=== PATIENT | male | born 1960 | race Hispanic/Latino ===

== ENCOUNTER → 2017-10-15 | Outpatient (CLI) | payer OTHER ==
--- NOTE | 2017-10-15 12:14 | Diagnostic Imaging Report ---
PROCEDURE: Frontal and lateral views of the chest. COMPARISON: None. INDICATIONS: PLEURAL EFFUSION,M ATELACTASIS FINDINGS: Lines/tubes: None. Lungs and pleura: The lungs are well inflated. Mild central vascular congestion. Small right pleural effusion. No pneumothorax. Heart and mediastinum: The heart and the mediastinum are normal. Bones: No acute bony abnormality. IMPRESSION: Small loculated appearing right pleural effusion. Mild central vascular congestion. Dictated by: Brandon Maldonado M.D. on 10/15/2017 at 12:23 Electronically approved by: Brandon Maldonado M.D. on 10/15/2017 at 12:23
== END ==
LOC: RAD 11:41
PROVIDERS: ATTEND Family Medicine
DX: I50.9 Heart failure, unspecified (principal)
CPT/HCPCS: 71046

== ENCOUNTER → 2020-06-30 | Day surgery (SDC) | payer OTHER, MEDICARE ==
[2020-06-25 09:54] LABS: BASOPHILS # (AUTO) 0.1 (0.0-0.1); BASOPHILS % 0.8 % (0.0-1.0); EOSINOPHILS # (AUTO) 0.4 (0.0-0.4); EOSINOPHILS % 4.6 % (0.0-6.0); LYMPHOCYTES # (AUTO) 1.5 (1.0-3.2); LYMPHOCYTES % 18.7 % (18.0-39.1); MEAN CORPUSCULAR HEMOGLOBIN 29.9 pg (28-32); MEAN CORPUSCULAR HGB CONC 33.3 g/dL (31-35); MEAN CORPUSCULAR VOLUME 89.6 fL (81-99); MONOCYTES # (AUTO) 0.7 (0.2-0.8); MONOCYTES % 8.2 % (4.4-11.3); NEUTROPHILS # (AUTO) 5.3 (2.1-6.9); NEUTROPHILS % 67.3 % (38.7-80.0); PLATELET COUNT 134 x10e3/uL (140-360); RED BLOOD COUNT 3.35 x10e6/uL (4.3-5.7); RED CELL DISTRIBUTION WIDTH 14.4 % (11.7-14.4)
[2020-06-25 10:21] LABS: ALBUMIN 3.4 g/dL (3.5-5.0); ALBUMIN/GLOBULIN RATIO 1.1 (0.8-2.0); ANION GAP 12.4 mmol/L (8-16); CALCIUM 7.8 mg/dL (8.4-10.2); CREATININE, SERUM 6.88 mg/dL (0.72-1.25); POTASSIUM 4.4 mmol/L (3.5-5.1)
[2020-06-25 11:27] LABS: INR 1.09; PROTHROMBIN TIME 14.7 seconds (11.9-14.5)
[2020-06-25 11:28] LABS: PARTIAL THROMBOPLASTIN TIME 30.4 seconds (23.8-35.5)
[2020-06-30] VITALS (12 sets, daily range): BP systolic 141–180; BP diastolic 64–77
[~2020-06-30] VITALS: Ht 172.7 cm; Wt 97.5 kg
[~2020-06-30] MED LIST: ASPIRIN 325 MG TAB ONE; CARVEDILOL12.5 MG PO; CRESTOR10 MG PO; DIALYVITE 8000.8 M1 PO; ENTRESTO 49 MG1 EACH PO; FENTANYL CITRATE/PF 100MCG/2 ML INJ ONE; FERROUS SULFAT325 MG PO; GLIPIZIDE ER5 MG PO; HEPARIN SOD/SOD CHLORIDE 2,000 ML ONE; HYDRALAZINE HCL25 MG PO; IOPAMIDOL 300MG/ML 100 ML INFUS..BTL IV ONE; IOPAMIDOL 370 MG/ML 200 ML INFUS..BTL INJ ONE; JARDIANCE25 MG PO; LEVOTHYROXINE50 MCG PO; LIDOCAINE HCL 2% LOCAL 20 ML VIAL ONE; MIDAZOLAM HCL 2 MG/2 ML VIAL ONE; SODIUM CHLORIDE 0.9% 1000ML 1,000 ML ONE
--- NOTE | 2020-06-30 10:00 | NUR ---
1000 am RECEIVING NOTE ADMINISTRATION SPECIALIST RECOVERY DEPT............................................................... Bedside report received from LYRIC Morel. [id number]. Alert oriented and appropriate, PERRLA, respirations even and unlabored to room air. Pulses x4 extremities equal and strong. Pedal pulses PT/DP x4 and marked. Cap fill brisk < 3 sec. Rt groin Angiosel site No gross issues pain pallor pressure or dysrhythmia. May dc at 1pm. Skin warm and dry integrity appears D/I IV 20g to left hand at 50cchr presents healthy w/o s/s of infiltration or complaint. Abdomen soft and supple. pt offered toileting, denies need to urinate or defecate. No personal affects with patient. Family at bedside. Currently w/o complaint of pain or need. ds/rn
--- NOTE | 2020-06-30 12:20 | Operative Report ---
DATE OF PROCEDURE: 06/30/2020 SURGEON: Regis Sykes MD PROCEDURE INDICATIONS: 1. Systolic heart failure, chronic and angina pectoris. 2. Peripheral arterial disease with life-limiting claudication affecting bilateral lower extremities. PROCEDURES PERFORMED: 1. Left heart catheterization. 2. Selective coronary angiography. 3. Catheter placement in the aorta. 4. Abdominal aortogram. 5. Third-order catheter placement from right femoral artery to left femoral artery. 6. Selective lower extremity angiography, bilateral. 7. Ultrasound-guided access. 8. Moderate sedation, 40 minutes. PROCEDURE COMPLICATIONS: None. ESTIMATED BLOOD LOSS: Less than 15 mL. PROCEDURE SUMMARY: After consent was obtained, the patient was prepped and draped in a sterile fashion. The right femoral site was locally infiltrated with 2% lidocaine and with micropuncture kit. A 6-Mongolian sheath was placed. All catheters were railed into the proximal ascending aorta as well as to the distal descending abdominal aorta for peripheral angiography and right femoral artery to left femoral artery for advance catheter placement. JL4 and JR4 catheters were used. The aortic valve was crossed with a JR4 catheter. Omni Flush catheter was used for peripheral angiography. The following findings were observed: 1. No left ventriculogram was performed. 2. LV pressure was 156/10 with end-diastolic pressure of 26. 3. Aortic pressure is 153/63. 4. Left main is large in caliber with luminal irregularities. It gives an LAD and circumflex. 5. The LAD has luminal irregularities. It gives several septal perforators and medium caliber diagonal. 6. The left circumflex has luminal irregularities. It gives an obtuse marginal and small left posterolateral number. 7. The right coronary artery is dominant with luminal irregularities, gives a conus branch and RV marginal and terminal RPDA and RPLV. Both renal arteries are patent. The infrarenal aorta and iliac vessels (common iliac, external iliac, internal iliac) bilaterally have luminal irregularities. Common femoral arteries profunda femoris, femoral artery and popliteal artery have luminal irregularities with mild calcifications. Bilateral anterior tibials are patent. TP trunks are patent. Peroneal arteries are patent. The right posterior tibial has 100% occluded throughout. The left posterior tibial is diffusely diseased, small caliber, 70% stenosis. At the foot level of the DPA, the digital arteries and the plantar arteries are severely diseased, very small in caliber, consistent with severe outflow disease bilaterally. CONCLUSION: 1. Nonischemic cardiomyopathy without any significant obstructive coronary artery disease. 2. Severe peripheral vascular disease, mainly diabetic/outflow disease, small caliber vessels at the foot level with occluded right posterior tibial and severely diseased left posterior tibial without adequate outflow. RECOMMEND: Medical management. Regis Sykes MD AFV/MODL /[id number]
--- NOTE | 2020-06-30 13:00 | NUR ---
1300p NURSING CCL DISCHARGE NOTE: Pt meets discharge criteria. VS Wnl, alert and oriented. Pt and Family Understands discharge instruction. Overall general assess w/o gross outliers. Skin warm, dry, and intact. Right groin dressing soft w/o s/s of hematoma. Pedal pulses unchanged. IV removed and appears distal tip is intact. Pt maintains mask on for COVID 19 precautions being taken by wheel chair to awaiting car. Transfers w/o gross distress with discharge paperwork in hand. ds/rn
== END | disposition home or self-care (01) ==
LOC: CATH LAB 06:50
PROVIDERS: ATTEND Internal Medicine Cardiovascular Disease
DX: I42.8 Other cardiomyopathies (principal); I20.9 Angina pectoris, unspecified; I70.219 Atherosclerosis of native arteries of extremities with intermittent claudication, unspecified extremity; E11.22 Type 2 diabetes mellitus with diabetic chronic kidney disease; I13.2 Hypertensive heart and chronic kidney disease with heart failure and with stage 5 chronic kidney disease, or end stage renal disease; N18.6 End stage renal disease; I50.22 Chronic systolic (congestive) heart failure; E66.01 Morbid (severe) obesity due to excess calories; E78.5 Hyperlipidemia, unspecified; E03.9 Hypothyroidism, unspecified; Z01.812 Encounter for preprocedural laboratory examination; Z11.59 Encounter for screening for other viral diseases; Z79.84 Long term (current) use of oral hypoglycemic drugs; Z68.36 Body mass index [BMI] 36.0-36.9, adult; Z83.3 Family history of diabetes mellitus
CPT/HCPCS: 36247; 36415; 75625; 75716; 76937; 80053; 85025; 85610; 85730; 93458; C1769 ×2; C1887; J2001; J2250; J3010; J7030; Q9967 ×2; U0002; 99152; 99153

== ENCOUNTER 2021-09-26 12:39 | Observation (INO) | payer OTHER, MEDICARE ==
[~2021-09-26] VITALS: Ht 172.7 cm; Wt 97.5 kg
[~2021-09-26 12:39] MED LIST changes: -ASPIRIN 325 MG TAB ONE; -FENTANYL CITRATE/PF 100MCG/2 ML INJ ONE; -HEPARIN SOD/SOD CHLORIDE 2,000 ML ONE; -IOPAMIDOL 300MG/ML 100 ML INFUS..BTL IV ONE; -IOPAMIDOL 370 MG/ML 200 ML INFUS..BTL INJ ONE; -LIDOCAINE HCL 2% LOCAL 20 ML VIAL ONE; -MIDAZOLAM HCL 2 MG/2 ML VIAL ONE; -SODIUM CHLORIDE 0.9% 1000ML 1,000 ML ONE
[2021-09-26] MEDS ORDERED: ACETAMINOPHEN 325 MG TAB PO ONE (13:00)
[2021-09-26] MEDS ORDERED: HYDRALAZINE HCL 20 MG/ML VIAL IV STA (13:04)
[2021-09-26 13:46] LABS: ALBUMIN 3.5 g/dL (3.5-5.0); ANION GAP 13.8 mmol/L (8-16); CALCIUM 8.9 mg/dL (8.4-10.2); CREATININE, SERUM 7.28 mg/dL (0.72-1.25); POTASSIUM 3.8 mmol/L (3.5-5.1)
[2021-09-26 13:53] LABS: CREATINE KINASE MB 4.9 ng/mL (0-5.0)
[2021-09-26 14:09] LABS: BASOPHILS % 0.5 % (0.0-1.0); EOSINOPHILS % 0.8 % (0.0-6.0); HEMATOCRIT 26.2 % (38.2-49.6); HEMOGLOBIN 8.5 g/dL (14.0-18.0); LYMPHOCYTES # (AUTO) 0.5 (1.0-3.2); LYMPHOCYTES % 13.9 % (18.0-39.1); MEAN CORPUSCULAR HEMOGLOBIN 28.3 pg (28-32); MEAN CORPUSCULAR HGB CONC 32.4 g/dL (31-35); MEAN CORPUSCULAR VOLUME 87.3 fL (81-99); MONOCYTES # (AUTO) 0.4 (0.2-0.8); MONOCYTES % 11.1 % (4.4-11.3); NEUTROPHILS # (AUTO) 2.8 (2.1-6.9); NEUTROPHILS % 73.2 % (38.7-80.0); PLATELET COUNT 85 x10e3/uL (140-360); RED CELL DISTRIBUTION WIDTH 16.6 % (11.7-14.4)
[2021-09-26 14:22] LABS: INR 1.14; PROTHROMBIN TIME 15.5 seconds (11.9-14.5)
[2021-09-26] MEDS ORDERED: CEFTRIAXONE 1 GM in SODIUM CHLORIDE 0.9% 50ML 50 ML IV STA (14:22)
[2021-09-26 14:23] LABS: PARTIAL THROMBOPLASTIN TIME 43.4 seconds (23.8-35.5)
[2021-09-26] MEDS ORDERED: SODIUM CHLORIDE FLUSH 10 ML SYR INJ PRN (17:00)
[2021-09-26 20:23] LABS: CREATINE KINASE MB 2.5 ng/mL (0-5.0)
[2021-09-26 23:00] VITALS: BP 188/65
[2021-09-27] VITALS (8 sets, daily range): BP systolic 128–166; BP diastolic 62–73
[2021-09-27 05:35] LABS: BASOPHILS % 0.7 % (0.0-1.0); EOSINOPHILS # (AUTO) 0.1 (0.0-0.4); EOSINOPHILS % 1.2 % (0.0-6.0); HEMATOCRIT 26.2 % (38.2-49.6); HEMOGLOBIN 8.5 g/dL (14.0-18.0); MEAN CORPUSCULAR HEMOGLOBIN 29.2 pg (28-32); MEAN CORPUSCULAR HGB CONC 32.4 g/dL (31-35); MONOCYTES # (AUTO) 0.6 (0.2-0.8); MONOCYTES % 14.7 % (4.4-11.3); NEUTROPHILS # (AUTO) 2.5 (2.1-6.9); NEUTROPHILS % 58.9 % (38.7-80.0); PLATELET COUNT 77 x10e3/uL (140-360); RED BLOOD COUNT 2.91 x10e6/uL (4.3-5.7); RED CELL DISTRIBUTION WIDTH 16.6 % (11.7-14.4)
[2021-09-27 06:38] LABS: ALBUMIN 2.9 g/dL (3.5-5.0); ALBUMIN/GLOBULIN RATIO 0.9 (0.8-2.0); ANION GAP 12.3 mmol/L (8-16); CALCIUM 8.3 mg/dL (8.4-10.2); CREATININE, SERUM 9.6 mg/dL (0.72-1.25); POTASSIUM 4.3 mmol/L (3.5-5.1)
[2021-09-27 06:40] LABS: CHOL/HDL RATIO 2.4 (3.9-4.7)
[2021-09-27 08:15] LABS: CREATINE KINASE MB 2.3 ng/mL (0-5.0)
[2021-09-27] MEDS: HYDRALAZINE HCL 25 MG TAB PO SCH ×3 (09:45→22:59)
[2021-09-27] MEDS: FERROUS SULFATE 325 MG TAB PO SCH ×2 (09:46→17:48)
[2021-09-27] MEDS: SACUBITRIL/VALSARTAN 1 EACH TABLET PO SCH (09:46)
[2021-09-27] MEDS: LEVOTHYROXINE SODIUM 50 MCG TAB PO SCH (09:46)
[2021-09-27] MEDS: CARVEDILOL 12.5 MG TAB PO SCH ×2 (09:46→17:49)
[2021-09-27 15:45] LABS: CREATINE KINASE MB 3.2 ng/mL (0-5.0)
[2021-09-27] MEDS ORDERED: SIMVASTATIN 40 MG TAB PO SCH (21:00)
[2021-09-28] VITALS (7 sets, daily range): BP systolic 137–182; BP diastolic 58–98
[2021-09-28 06:55] LABS: ALBUMIN 3.1 g/dL (3.5-5.0); ALBUMIN/GLOBULIN RATIO 0.9 (0.8-2.0); ANION GAP 12.4 mmol/L (8-16); CALCIUM 7.7 mg/dL (8.4-10.2); CREATININE, SERUM 11.18 mg/dL (0.72-1.25); POTASSIUM 4.4 mmol/L (3.5-5.1)
[2021-09-28] MEDS ORDERED: SODIUM CHLORIDE 0.9% 250ML 500 ML IV PRN (08:00)
[2021-09-28] MEDS ORDERED: ALBUMIN 25% 12.5GM 0.25 GM/ML BTL IV PRN (08:00)
[2021-09-28] MEDS ORDERED: HEPARIN SOD (PORCINE) 1000 UNIT/ML SDV IV PRN (08:00)
[2021-09-28] MEDS ORDERED: SODIUM CHLORIDE 0.9% 1000ML 2,000 ML IV PRN (08:00)
[2021-09-28] MEDS: SACUBITRIL/VALSARTAN 1 EACH TABLET PO SCH (09:00)
[2021-09-28] MEDS: CARVEDILOL 12.5 MG TAB PO SCH ×2 (09:00→18:30)
[2021-09-28] MEDS: FERROUS SULFATE 325 MG TAB PO SCH ×2 (09:00→17:00)
[2021-09-28] MEDS: LEVOTHYROXINE SODIUM 50 MCG TAB PO SCH (09:00)
[2021-09-28] MEDS: HYDRALAZINE HCL 25 MG TAB PO SCH ×3 (09:45→18:30)
== END 2021-09-28 21:51 | disposition home or self-care (01) ==
LOC: ER 12:55 → ERHOLD 17:12 → INTOOBSV 17:12 → IMCU 21:37
PROVIDERS: ADMIT Internal Medicine; ATTEND Internal Medicine
DX: I13.2 Hypertensive heart and chronic kidney disease with heart failure and with stage 5 chronic kidney disease, or end stage renal disease (principal); G93.41 Metabolic encephalopathy; D63.8 Anemia in other chronic diseases classified elsewhere; E11.22 Type 2 diabetes mellitus with diabetic chronic kidney disease; N18.6 End stage renal disease; Z99.2 Dependence on renal dialysis; D61.818 Other pancytopenia; I50.22 Chronic systolic (congestive) heart failure; Z95.810 Presence of automatic (implantable) cardiac defibrillator; E11.42 Type 2 diabetes mellitus with diabetic polyneuropathy; U07.1 COVID-19; J12.82 Pneumonia due to coronavirus disease 2019; D69.6 Thrombocytopenia, unspecified; R25.1 Tremor, unspecified
CPT/HCPCS: 36415 ×3; 70450; 71045 ×2; 80053 ×3; 80061; 82550 ×2; 82553 ×2; 82948 ×2; 83036; 83605; 83880; 84484 ×2; 85025 ×2; 85610; 85730; 86705; 86706; 87040; 87340; 93005 ×2; 94799; 97110; 97116; 97161; 97530; 99284; G0378 ×3; J0360; J7030; U0002